=== PATIENT | female | born 1985 | race Caucasian/White ===

== ENCOUNTER 2017-03-18 14:40 | Emergency (ER) | payer BC ==
[~2017-03-18] VITALS: Ht 160 cm; Wt 63.6 kg
[~2017-03-18 14:40] MED LIST: IBU600 MG PO; NO HOME MEDICATIONS; NORCO 325 MG-51 TAB PO; OMNICEF 300MG300 MG PO; PERCOCET 325 MG1 TA2 PO
[2017-03-18 14:50] VITALS: TEMP 98.2
[2017-03-18 15:49] LABS: BASO % 0.3 % (0.0-2.0); EOS # 0.1 (0.0-0.7); GRAN % 79.6 % (42.2-75.2); HEMATOCRIT 38.7 % (37.0-47.0); HEMOGLOBIN 13.6 g/dl (12.5-16.0); LYMPH # 1.3 (1.2-3.4); LYMPH % 12.5 % (20.0-51.0); MEAN CELL VOLUME 90 fl (80.0-100.0); MEAN CORPUSCULAR HEMOGLOBIN 32 pg (27.0-31.0); MEAN CORPUSCULAR HGB CONC 35 g/dl (33.0-37.0); MEAN PLATELET VOLUME 10.5 fl (7.4-10.4); MONO # 0.6 (0.1-0.6); PLATELET COUNT 215 K/mm3 (130-400); RED BLOOD COUNT 4.31 M/mm3 (4.10-5.30); REDCELL DISTRIBUTION WIDTH-CV 11.7 % (11.5-14.5); WHITE BLOOD COUNT 10.1 K/mm3 (4.8-10.8)
[2017-03-18 15:59] LABS: ADJUSTED CALCIUM 8.9 mg/dL (8.4-10.2); ALANINE AMINOTRANSFERASE 24 U/L (9-52); ALBUMIN 4.3 gm/dL (3.5-5.0); ALKALINE PHOSPHATASE 59 U/L (50-136); ANION GAP 11 mmol/L (7-16); BILIRUBIN,TOTAL 0.6 mg/dL (0.0-1.0); BLOOD UREA NITROGEN 10 mg/dL (7-17); CALCIUM 9.1 mg/dL (8.4-10.2); CARBON DIOXIDE 25 mmol/L (22-30); CHLORIDE 102 mmol/L (98-107); GLUCOSE 83 mg/dL (74-106); POTASSIUM 3.6 mmol/L (3.4-5.0); SODIUM 138 mmol/L (137-145)
[2017-03-18 16:11] LABS: B-TYPE NATRIURETIC PEPTIDE 77 pg/mL (0-125)
[2017-03-18 16:14] LABS: TROPONIN-I < 0.012 ng/mL (0.000-0.034)
[2017-03-18 16:40] VITALS: BP 107/81; PULSE 66
== END 2017-03-18 17:05 | disposition home or self-care (01) ==
LOC: COL.ER 14:40
PROVIDERS: Emergency Medicine
DX: R07.9 Chest pain, unspecified (principal); R06.00 Dyspnea, unspecified

== ENCOUNTER → 2018-07-10 | Outpatient (CLI) | payer BC | LOC: MC.RAD 15:28 | DX: Z12.31 Encounter for screening mammogram for malignant neoplasm of breast (principal) ==

== ENCOUNTER 2019-11-06 06:06 | Outpatient (CLI) | payer BC ==
[~2019-11-06] VITALS: Ht 160 cm; Wt 85.9 kg
--- NOTE | 2019-11-06 06:45 | NUR ---
Patient ambulatory to unit accompanied by spouse for scheduled external version due to breech presentation. Patient oriented to room and call light. Resting in bed in clean gown. Patient denies any complication of except breech position. RH negative. Patient denies any leaking of fluid or vaginal bleeding. Patient states she does not feel baby move much. FHR and contraction monitors placed and explained. VS stable. INT started in right forearm and type and screen collected from IV site for rhogam studies. Assessment completed.
[2019-11-06 06:51] VITALS: BP 126/67; PULSE 86; TEMP 98
[2019-11-06] MEDS ORDERED: MAGNESIUM200 MG PO (06:57)
[2019-11-06 07:32] VITALS: BP 110/64; PULSE 78
--- NOTE | 2019-11-06 07:32 | NUR ---
Dr. Garg at bedside and reviews FHR and contractions on monitors since admission. Patient resting comfortably in bed. Bedside ultrasound and vertex position verified. Will continue with discharge home and continue her OB appointments at the office. Patient verbalizes understanding.
== END 2019-11-06 07:55 | disposition home or self-care (01) ==
LOC: LDRO 06:06 → EDSTATUS 06:12 → LDRO 07:55
DX: O32.1XX0 Maternal care for breech presentation, not applicable or unspecified (principal); Z3A.36 36 weeks gestation of pregnancy

== ENCOUNTER 2019-12-05 16:03 | Inpatient (IN) | payer BC ==
[2019-12-05] VITALS (11 sets, daily range): BP systolic 115–146; BP diastolic 56–86; PULSE 80–98; TEMP 97.4–98.4
[~2019-12-05] VITALS: Ht 160 cm; Wt 86.4 kg
[~2019-12-05 16:03] MED LIST changes: +MAGNESIUM200 MG PO
--- NOTE | 2019-12-05 16:10 | NUR ---
Patient ambulatory onto unit from office with report of SROM with at side. Patient changes into gown. Plan of care discussed. Patient reports good movement, irregular contractions, and leaking of clear fluid. Patient denies vaginal bleeding. EFMs on, VS taken. INT started to right wrist by Irwin NEGRETE. Assessment completed. Consents signed.
[2019-12-05 16:40] LABS: BASO % 0.2 % (0.0-2.0); EOS % 0.2 % (0-4.0); GRAN % 79.6 % (42.2-75.2); HEMATOCRIT 37.7 % (37.0-47.0); LYMPH # 1.5 (1.2-3.4); LYMPH % 11.8 % (20.0-51.0); MEAN CELL VOLUME 88 fl (80.0-100.0); MEAN CORPUSCULAR HEMOGLOBIN 30 pg (27.0-31.0); MEAN CORPUSCULAR HGB CONC 35 g/dl (33.0-37.0); MEAN PLATELET VOLUME 10.8 fl (7.4-10.4); MONO % 7.7 % (1.7-9.3); PLATELET COUNT 236 K/mm3 (130-400); RED BLOOD COUNT 4.29 M/mm3 (4.10-5.30); REDCELL DISTRIBUTION WIDTH-CV 13.2 % (11.5-14.5)
--- NOTE | 2019-12-05 16:40 | NUR ---
EFMs off. Patient up to ambulate.
--- NOTE | 2019-12-05 18:05 | NUR ---
to bedside. Patient breathing through contractions. SVE /-2 per provider.
--- NOTE | 2019-12-05 18:20 | NUR ---
Report to Santino NEGRETE to assume care of patient at this time.
--- NOTE | 2019-12-05 18:55 | NUR ---
1845 /-3. 1855 OFF [facility]. DR PETERS HERE AT L/D DESK
--- NOTE | 2019-12-05 19:15 | NUR ---
DR PETERS AT BEDSIDE- PUSHES OPEN GLOTTIS WHEN FEELS PRESSURE, NSY HERE SPOUSE ATTENTIVE. SHERON WASH BY DR PETERS 193 MALE TO MOTEHRS ABDOMEN. SPONT EVONNE DAD CUTS CORD
[2019-12-06 03:30] VITALS: BP 120/71; PULSE 80; TEMP 97.7
[2019-12-06 06:55] LABS: HEMOGLOBIN 11.5 g/dl (12.5-16.0)
[2019-12-06 07:04] LABS: HEMATOCRIT 33.5 % (37.0-47.0)
[2019-12-06 08:25] VITALS: BP 111/63; PULSE 86; TEMP 97.7
[2019-12-06] MEDS ORDERED: MOTRIN 600600 MG/TAB PO (09:02)
[2019-12-06] MEDS ORDERED: PERCOCET 325 MG1 TA2 PO (09:03)
[2019-12-06 16:00] VITALS: BP 108/52; PULSE 78; TEMP 97.9
[2019-12-06 20:25] VITALS: BP 119/73; PULSE 78; TEMP 97.8
[2019-12-07 08:24] VITALS: BP 123/70; PULSE 77; TEMP 98.3
== END 2019-12-07 10:25 | disposition home or self-care (01) | DRG 807 ==
LOC: LDR 16:03 → OB 21:00 → LDR 12-06 06:45 → OB 12-07 10:25
PROVIDERS: ADMIT Obstetrics & Gynecology
PROC: 10E0XZZ Delivery of Products of Conception, External Approach (ICD-10-PCS; principal; 2019-12-05)
PROC: 10907ZC Drainage of Amniotic Fluid, Therapeutic from Products of Conception, Via Natural or Artificial Opening (ICD-10-PCS; 2019-12-05)
PROC: 3E033VJ Introduction of Other Hormone into Peripheral Vein, Percutaneous Approach (ICD-10-PCS; 2019-12-05)
DX: O48.0 Post-term pregnancy (principal); Z37.0 Single live birth; Z3A.40 40 weeks gestation of pregnancy; O26.893 Other specified pregnancy related conditions, third trimester; Z67.41 Type O blood, Rh negative
CPT/HCPCS: J2590; J2791

== ENCOUNTER 2023-09-25 15:39 | Emergency (ER) | payer BC ==
[~2023-09-25] VITALS: Ht 160 cm; Wt 75.0 kg
[~2023-09-25 15:39] MED LIST changes: +MOTRIN 600600 MG/TAB PO
[2023-09-25 15:47] VITALS: TEMP 98.4
[2023-09-25 15:59] LABS: COLLECTION METHOD CLEAN CATCH
[2023-09-25] MEDS ORDERED: NS 1,000 ML IV ONE (16:00)
[2023-09-25 16:14] LABS: PH 5.5 (5.0-8.5); URINE APPEARANCE Clear (CLEAR/HAZY); URINE BLOOD Negative (NEGATIVE); URINE COLOR Yellow (YELLOW); URINE GLUCOSE Negative (NEGATIVE); URINE KETONE Negative (NEGATIVE); URINE NITRATE Negative (NEGATIVE); URINE PROTEIN(semi-quant) Negative (NEGATIVE); URINE UROBILINOGEN 0.2 E.U/dL (0.2-1.0)
[2023-09-25 16:18] LABS: URINE BACTERIA Occasional /hpf (NONE SEEN); URINE RBC 0-2 /hpf (0-2)
[2023-09-25 16:44] LABS: BASO % 0.4 % (0.0-2.0); EOS # 0.2 K/mm3 (0.0-0.7); EOS % 1.6 % (0.0-4.0); GRAN # 6.9 K/mm3 (1.4-6.5); GRAN % 73.3 % (42.2-75.2); HEMOGLOBIN 12.6 g/dl (12.5-16.0); LYMPH # 1.6 K/mm3 (1.2-3.4); LYMPH % 16.8 % (20.0-51.0); MEAN CELL VOLUME 88 fl (80.0-100.0); MEAN CORPUSCULAR HEMOGLOBIN 30 pg (27-31); MEAN CORPUSCULAR HGB CONC 34 g/dl (33.0-37.0); MEAN PLATELET VOLUME 10.4 fl (7.4-10.4); MONO # 0.7 K/mm3 (0.1-0.6); MONO % 7.6 % (1.7-9.3); PLATELET COUNT 211 K/mm3 (130-400); RED BLOOD COUNT 4.17 M/mm3 (4.10-5.30); REDCELL DISTRIBUTION WIDTH-CV 12.7 % (11.5-14.5)
[2023-09-25 16:46] LABS: HEMATOCRIT 36.6 % (37.0-47.0)
[2023-09-25 16:58] LABS: BILIRUBIN,TOTAL 0.3 mg/dL (0.2-1.2); CALCIUM 9.6 mg/dL (8.4-10.2); CREATININE, serum 0.78 mg/dL (0.57-1.11); POTASSIUM 4.1 mmol/L (3.5-4.5); TOTAL PROTEIN 6.8 gm/dL (6.2-8.1)
[2023-09-25] MEDS ORDERED: Iohexol 300 - 100 ML VIAL IV ONE (17:09)
[2023-09-25] MEDS ORDERED: NS 100 ML IV SCH (17:10)
[2023-09-25] MEDS ORDERED: PERCOCET 325 MG1 TA2 PO (17:45)
[2023-09-25] MEDS ORDERED: Home oxyCODONE/Acetaminophen 5/325 MG #4 TAB/PACK PO ONE (17:45)
[2023-09-25] MEDS ORDERED: Ketorolac 30 MG/ML VIAL IV ONE (17:45)
[2023-09-25 18:21] VITALS: BP 135/89; PULSE 70
== END 2023-09-25 18:21 | disposition home or self-care (01) ==
LOC: COL.ER 15:39
PROVIDERS: Physician Assistant
DX: N13.2 Hydronephrosis with renal and ureteral calculous obstruction (principal); Q62.5 Duplication of ureter
CPT/HCPCS: J1885; J7030; Q9967